=== PATIENT | female | born 1975 | race Caucasian/White ===

== ENCOUNTER 2024-09-14 09:50 | Day surgery (SDC) | payer OTHER ==
[~2024-09-14 09:50] MED LIST: Sodium Chloride 0.9% 10 ML Syringe FLUSH PRN; Sodium Chloride 0.9% 2.5 ML Syringe FLUSH PRN
[2024-09-14] MEDS: Lactated Ringers 1,000 ML IV SCH (10:36)
[2024-09-14] MEDS: Scopalamine 1mg/3day Transdermal Patch TRDERM PRN (10:42)
[2024-09-14] MEDS ORDERED: propofoL 500 MG/50 ML 50 ML ONE (10:44)
== END 2024-09-14 12:10 | disposition home or self-care (01) ==
LOC: MW.SDS 09:50
PROVIDERS: ATTEND Surgery
DX: Z12.11 Encounter for screening for malignant neoplasm of colon (principal); Z88.8 Allergy status to other drugs, medicaments and biological substances; Z79.899 Other long term (current) drug therapy
CPT/HCPCS: 45378; A9270; J2003; J2704; J7120; 00812